=== PATIENT | male | born 1995 | race Caucasian/White ===

== ENCOUNTER 2016-06-15 08:41 | Emergency (ER) | payer MEDICAID, OTHER ==
[~2016-06-15] VITALS: Ht 177.8 cm; Wt 100.0 kg
[2016-06-15] MEDS ORDERED: LIDOCAINE HCL BUFFERED 1% 20 ML VIAL INJ ONE (10:15)
[2016-06-15] MEDS ORDERED: POVIDONE-IODINE 10% 15 ML SOLUTION UD TP ONE (10:15)
[2016-06-15 11:20] VITALS: BP 136/72
== END 2016-06-15 12:10 | disposition home or self-care (01) ==
LOC: EMS 08:43
DX: S01.511A Laceration without foreign body of lip, initial encounter (principal); J45.909 Unspecified asthma, uncomplicated; Y04.0XXA Assault by unarmed brawl or fight, initial encounter; Y93.89 Activity, other specified; Y92.89 Other specified places as the place of occurrence of the external cause; Y99.8 Other external cause status
CPT/HCPCS: 12051; 99284; J3490

== ENCOUNTER 2016-06-20 08:45 | Emergency (ER) | payer MEDICAID ==
[~2016-06-20] VITALS: Ht 180.3 cm; Wt 100.0 kg
[2016-06-20 08:52] VITALS: BP 125/65
== END 2016-06-20 09:12 | disposition home or self-care (01) ==
LOC: EMS 08:46
DX: Z48.02 Encounter for removal of sutures (principal); J45.909 Unspecified asthma, uncomplicated
CPT/HCPCS: 99281

== ENCOUNTER 2018-01-25 11:27 | Emergency (ER) | payer SELFPAY ==
[~2018-01-25] VITALS: Ht 172.7 cm; Wt 90.9 kg
[2018-01-25 11:39] VITALS: BP 128/84
[2018-01-25] MEDS ORDERED: IBUPROFEN 600 MG TABLET PO ONE (12:30)
== END 2018-01-25 12:34 | disposition home or self-care (01) ==
LOC: EMS 11:39
DX: J40 Bronchitis, not specified as acute or chronic (principal); F12.90 Cannabis use, unspecified, uncomplicated; F17.210 Nicotine dependence, cigarettes, uncomplicated
CPT/HCPCS: 99406

== ENCOUNTER 2018-01-27 09:17 | Emergency (ER) | payer SELFPAY ==
[~2018-01-27] VITALS: Ht 170.2 cm; Wt 86.4 kg
[2018-01-27 09:26] VITALS: BP 133/56
[2018-01-27 09:53] LABS: BASOPHILS % (AUTO) 0.8 % (0.0-2.0); EOSINOPHILS % (AUTO) 7.4 % (1.0-6.0); HEMATOCRIT 50.4 % (41-53); HEMOGLOBIN 17.4 g/dL (13.5-17.5); LYMPHOCYTES # (AUTO) 2.3 K/uL (1.0-4.8); LYMPHOCYTES % (AUTO) 21.2 % (22.0-44.0); MEAN CORPUSCULAR HEMOGLOBIN 31.9 pg (26.0-34.0); MEAN CORPUSCULAR HGB CONC 34.5 G/dL (31.0-37.0); MEAN CORPUSCULAR VOLUME 93 fL (80-100); MONOCYTES # (AUTO) 0.9 K/uL (0.1-1.0); MONOCYTES % (AUTO) 8.2 % (2.0-9.0); NEUTROPHILS # (AUTO) 6.7 K/uL (1.8-7.7); NEUTROPHILS % (AUTO) 62.4 % (40.0-70.0); PLATELET COUNT (AUTO) 349 K/uL (150-450); RED BLOOD CELL COUNT(AUTO) 5.45 MIL/uL (4.50-5.90)
[2018-01-27 09:59] LABS: ANION GAP 8 mmol/L (8-16); CALCIUM, TOTAL 9.3 mg/dL (8.8-10.5); CARBON DIOXIDE 32 mmol/L (22-29); CHLORIDE 100 mmol/L (98-107); CREATININE 0.68 mg/dL (0.60-1.30); GLOMERULAR FILTR. RATE CALC > 60 mL/min (>60); GLUCOSE,RANDOM 93 mg/dL (70-110); POTASSIUM 4.4 mmol/L (3.5-5.1); SODIUM SERUM 140 mmol/L (136-145); UREA NITROGEN, BLOOD 12 mg/dL (7-18)
[2018-01-27 10:05] LABS: ALANINE AMINOTRANSFERASE 40 U/L (12-78); ALBUMIN 4.3 g/dL (3.4-5.0); ALKALINE PHOSPHATASE 77 U/L (46-116); ASPARTATE AMINOTRANSFERASE 18 U/L (15-37); BILIRUBIN,TOTAL 0.6 mg/dL (0.1-1.0)
[2018-01-27] MEDS ORDERED: LORazepam 2 MG TABLET PO ONE (10:30)
== END 2018-01-27 11:03 | disposition home or self-care (01) ==
LOC: EMS 09:20
DX: F41.9 Anxiety disorder, unspecified (principal); J45.909 Unspecified asthma, uncomplicated; F12.90 Cannabis use, unspecified, uncomplicated; F17.210 Nicotine dependence, cigarettes, uncomplicated
CPT/HCPCS: 36415; 80053; 85025; 99284; G0480

== ENCOUNTER 2019-12-03 20:40 | Emergency (ER) | payer MEDICAID ==
[~2019-12-03] VITALS: Ht 180.3 cm; Wt 90.0 kg
[2019-12-03 22:08] VITALS: BP 129/82
== END 2019-12-03 22:30 | disposition home or self-care (01) ==
LOC: EMS 20:41
DX: F19.10 Other psychoactive substance abuse, uncomplicated (principal); F12.90 Cannabis use, unspecified, uncomplicated; F15.90 Other stimulant use, unspecified, uncomplicated; F17.210 Nicotine dependence, cigarettes, uncomplicated
CPT/HCPCS: Z7502

== ENCOUNTER 2020-12-03 20:41 | Inpatient (IN) | payer MEDICAID ==
[~2020-12-03] VITALS: Ht 177.8 cm; Wt 80.7 kg
[2020-12-03 21:21] LABS: BASOPHILS % (AUTO) 0.8 % (0.0-2.0); EOSINOPHILS % (AUTO) 4.3 % (1.0-6.0); HEMATOCRIT 39.6 % (41-53); HEMOGLOBIN 13.7 g/dL (13.5-17.5); LYMPHOCYTES # (AUTO) 3.1 K/uL (1.0-4.8); LYMPHOCYTES % (AUTO) 34.7 % (22.0-44.0); MEAN CORPUSCULAR HEMOGLOBIN 30.7 pg (26.0-34.0); MEAN CORPUSCULAR HGB CONC 34.5 G/dL (31.0-37.0); MEAN CORPUSCULAR VOLUME 89 fL (80-100); MONOCYTES # (AUTO) 1.3 K/uL (0.1-1.0); MONOCYTES % (AUTO) 14.9 % (2.0-9.0); NEUTROPHILS # (AUTO) 4.1 K/uL (1.8-7.7); NEUTROPHILS % (AUTO) 45.3 % (40.0-70.0); PLATELET COUNT (AUTO) 292 K/uL (150-450); RED BLOOD CELL COUNT(AUTO) 4.45 MIL/uL (4.50-5.90); RED CELL DISTRIBUTION WIDTH 12.8 % (11.5-14.5)
[2020-12-03 21:30] LABS: ANION GAP 8 mmol/L (8-16); CALCIUM, TOTAL 8.6 mg/dL (8.8-10.5); CARBON DIOXIDE 29 mmol/L (22-29); CHLORIDE 107 mmol/L (98-107); CREATININE 0.67 mg/dL (0.60-1.30); GLOMERULAR FILTR. RATE CALC > 60 mL/min (>60); GLUCOSE,RANDOM 93 mg/dL (70-110); POTASSIUM 3.5 mmol/L (3.5-5.1); SODIUM SERUM 144 mmol/L (136-145); UREA NITROGEN, BLOOD 23 mg/dL (7-18)
[2020-12-03 21:36] LABS: ALANINE AMINOTRANSFERASE 28 U/L (12-78); ALKALINE PHOSPHATASE 87 U/L (46-116); ASPARTATE AMINOTRANSFERASE 17 U/L (15-37); BILIRUBIN,TOTAL 0.4 mg/dL (0.1-1.0); TOTAL PROTEIN, SERUM 7.5 g/dL (6.4-8.2)
[2020-12-03] MEDS ORDERED: HALOPERIDOL 5 MG TABLET PO PRN (22:45)
[2020-12-03] MEDS ORDERED: LORazepam 2 MG TABLET PO PRN (22:45)
[2020-12-04 02:16] LABS: COVID AG,FIA SOURCE NASOPHARYNGEAL
[2020-12-04 02:45] LABS: CHOL/HDL RATIO 2.1 (4.2-7.3); CHOLESTEROL 103 mg/dL (131-200); HDL CHOLESTEROL 49 mg/dL (40-60); LDL CHOL (CALC.) 43 mg/dL (0-130); TRIGLYCERIDES 57 mg/dL (15-150)
[2020-12-04 04:02] VITALS: BP 133/84
[2020-12-04] MEDS ORDERED: INFLUENZA VIRUS VACCINE QVS 2021-22 (6MO+)/PF 60 MCG/0.5 ML SYRINGE IM. ONE (05:30)
[2020-12-04] MEDS ORDERED: PETROLATUM,WHITE 28 GM JELLY TP PRN (09:45)
[2020-12-04] MEDS ORDERED: ONDANSETRON HCL 4 MG TABLET PO PRN (09:45)
[2020-12-04] MEDS ORDERED: DOCUSATE SODIUM 100 MG CAPSULE PO PRN (09:45)
[2020-12-04] MEDS ORDERED: MAG HYDROX/AL HYDROX/SIMETH ES 30 ML SUSPENSION UDCUP PO PRN (09:45)
[2020-12-04] MEDS ORDERED: IBUPROFEN 400 MG TABLET PO PRN (09:45)
[2020-12-04] MEDS ORDERED: LOPERAMIDE HCL 2 MG CAPSULE PO PRN (09:45)
[2020-12-04] MEDS ORDERED: GuaiFENesin/D-METHORPHAN [SUGAR-FREE] 200-20MG/10 ML SYRUP UDCUP PO PRN (09:45)
[2020-12-04] MEDS ORDERED: ACETAMINOPHEN 325 MG TABLET PO PRN (09:45)
[2020-12-04] MEDS ORDERED: MAGNESIUM HYDROXIDE SUSPENSION 30 ML UDCUP PO PRN (09:45)
[2020-12-04] MEDS ORDERED: CloNIDine HCL 0.1 MG TABLET PO PRN (09:45)
[2020-12-04] MEDS ORDERED: ALBUTEROL SULFATE HFA 90 MCG/PUFF 8 GM INHALER IH PRN (09:45)
[2020-12-04] MEDS ORDERED: NICOTINE 14 MG/24 HOUR PATCH TD PRN (09:45)
[2020-12-04] MEDS: QUEtiapine FUMARATE 25 MG TABLET PO SCH (13:02)
[2020-12-04] MEDS ORDERED: LORazepam 2 MG/ML VIAL ONE (19:07)
[2020-12-04] MEDS ORDERED: HALOPERIDOL LACTATE 5 MG/ML VIAL ONE ×2 (19:07)
[2020-12-04] MEDS ORDERED: DiphenhydrAMINE HCL 50 MG/ML VIAL ONE (19:07)
[2020-12-04] MEDS ORDERED: LORazepam 2 MG/ML VIAL IM ONE (19:15)
[2020-12-04] MEDS ORDERED: HALOPERIDOL LACTATE 5 MG/ML VIAL IM ONE (19:15)
[2020-12-04] MEDS ORDERED: DiphenhydrAMINE HCL 50 MG/ML VIAL IM ONE (19:15)
[2020-12-04] MEDS: QUEtiapine FUMARATE 100 MG TABLET PO SCH (21:00)
[2020-12-05] MEDS ORDERED: DOCUSATE SODIUM 100 MG CAPSULE PO PRN (06:30)
[2020-12-05] MEDS ORDERED: ACETAMINOPHEN 325 MG TABLET PO PRN (06:30)
[2020-12-05] MEDS ORDERED: NICOTINE 14 MG/24 HOUR PATCH TD PRN (06:30)
[2020-12-05] MEDS ORDERED: GuaiFENesin/D-METHORPHAN [SUGAR-FREE] 200-20MG/10 ML SYRUP UDCUP PO PRN (06:30)
[2020-12-05] MEDS ORDERED: IBUPROFEN 400 MG TABLET PO PRN (06:30)
[2020-12-05] MEDS ORDERED: CloNIDine HCL 0.1 MG TABLET PO PRN (06:30)
[2020-12-05] MEDS ORDERED: MAG HYDROX/AL HYDROX/SIMETH ES 30 ML SUSPENSION UDCUP PO PRN (06:30)
[2020-12-05] MEDS ORDERED: PETROLATUM,WHITE 28 GM JELLY TP PRN (06:30)
[2020-12-05] MEDS ORDERED: LOPERAMIDE HCL 2 MG CAPSULE PO PRN (06:30)
[2020-12-05] MEDS ORDERED: ONDANSETRON HCL 4 MG TABLET PO PRN (06:30)
[2020-12-05] MEDS ORDERED: ALBUTEROL SULFATE HFA 90 MCG/PUFF 8 GM INHALER IH PRN (06:30)
[2020-12-05] MEDS ORDERED: MAGNESIUM HYDROXIDE SUSPENSION 30 ML UDCUP PO PRN (06:30)
[2020-12-05 08:05] VITALS: BP 126/91
[2020-12-05] MEDS: THIAMINE 100 MG TABLET PO SCH (09:02)
[2020-12-05] MEDS: MULTIVITAMINS WITH MINERALS, THERAPEUTIC TABLET PO SCH (09:02)
[2020-12-05] MEDS: QUEtiapine FUMARATE 25 MG TABLET PO SCH (09:02)
[2020-12-05] MEDS: FOLIC ACID 1 MG TABLET PO SCH (09:02)
[2020-12-05 16:26] VITALS: BP 128/79
[2020-12-05] MEDS: QUEtiapine FUMARATE 100 MG TABLET PO SCH (21:46)
[2020-12-06] MEDS: THIAMINE 100 MG TABLET PO SCH (08:37)
[2020-12-06] MEDS: MULTIVITAMINS WITH MINERALS, THERAPEUTIC TABLET PO SCH (08:37)
[2020-12-06] MEDS: QUEtiapine FUMARATE 25 MG TABLET PO SCH (08:37)
[2020-12-06] MEDS: FOLIC ACID 1 MG TABLET PO SCH (08:37)
[2020-12-06 08:53] VITALS: BP 108/64
[2020-12-06 17:06] VITALS: BP 112/77
[2020-12-06] MEDS: QUEtiapine FUMARATE 100 MG TABLET PO SCH (21:04)
[2020-12-07 09:20] VITALS: BP 128/71
[2020-12-07] MEDS: THIAMINE 100 MG TABLET PO SCH (09:24)
[2020-12-07] MEDS: MULTIVITAMINS WITH MINERALS, THERAPEUTIC TABLET PO SCH (09:25)
[2020-12-07] MEDS: QUEtiapine FUMARATE 25 MG TABLET PO SCH (09:25)
[2020-12-07] MEDS: FOLIC ACID 1 MG TABLET PO SCH (09:25)
[2020-12-07 16:53] VITALS: BP 121/69
[2020-12-07] MEDS: QUEtiapine FUMARATE 100 MG TABLET PO SCH (20:20)
[2020-12-08] MEDS: QUEtiapine FUMARATE 25 MG TABLET PO SCH (08:55)
[2020-12-08] MEDS: THIAMINE 100 MG TABLET PO SCH (08:55)
[2020-12-08] MEDS: MULTIVITAMINS WITH MINERALS, THERAPEUTIC TABLET PO SCH (08:55)
[2020-12-08] MEDS: FOLIC ACID 1 MG TABLET PO SCH (08:55)
[2020-12-08 09:10] VITALS: BP 125/75
[2020-12-08 17:37] VITALS: BP 110/71
[2020-12-08] MEDS: QUEtiapine FUMARATE 100 MG TABLET PO SCH (20:16)
[2020-12-09] MEDS: THIAMINE 100 MG TABLET PO SCH (08:06)
[2020-12-09] MEDS: QUEtiapine FUMARATE 25 MG TABLET PO SCH (08:06)
[2020-12-09] MEDS: FOLIC ACID 1 MG TABLET PO SCH (08:06)
[2020-12-09] MEDS: MULTIVITAMINS WITH MINERALS, THERAPEUTIC TABLET PO SCH (08:06)
[2020-12-09 08:45] VITALS: BP 109/71
[2020-12-09 16:00] VITALS: BP 113/69
[2020-12-09] MEDS: QUEtiapine FUMARATE 100 MG TABLET PO SCH (20:07)
[2020-12-10 00:40] VITALS: BP 115/61
[2020-12-10] MEDS: ZOLPIDEM TARTRATE 10 MG TABLET PO PRN (00:44)
[2020-12-10] MEDS: THIAMINE 100 MG TABLET PO SCH (08:17)
[2020-12-10] MEDS: FOLIC ACID 1 MG TABLET PO SCH (08:17)
[2020-12-10] MEDS: MULTIVITAMINS WITH MINERALS, THERAPEUTIC TABLET PO SCH (08:17)
[2020-12-10] MEDS: QUEtiapine FUMARATE 25 MG TABLET PO SCH (08:18)
[2020-12-10 09:14] VITALS: BP 134/54
[2020-12-10 15:01] LABS: COVID AG,FIA SOURCE NASAL SWAB
[2020-12-10 16:00] VITALS: BP 117/73
[2020-12-10] MEDS: QUEtiapine FUMARATE 100 MG TABLET PO SCH (20:54)
[2020-12-11 08:15] VITALS: BP 112/74
[2020-12-11] MEDS: THIAMINE 100 MG TABLET PO SCH (08:25)
[2020-12-11] MEDS: FOLIC ACID 1 MG TABLET PO SCH (08:25)
[2020-12-11] MEDS: QUEtiapine FUMARATE 25 MG TABLET PO SCH (08:25)
[2020-12-11] MEDS: MULTIVITAMINS WITH MINERALS, THERAPEUTIC TABLET PO SCH (08:25)
[2020-12-11 16:00] VITALS: BP 107/65
[2020-12-11] MEDS: QUEtiapine FUMARATE 100 MG TABLET PO SCH (20:10)
[2020-12-12 00:30] VITALS: BP 132/94
[2020-12-12] MEDS: ZOLPIDEM TARTRATE 10 MG TABLET PO PRN (00:36)
[2020-12-12 09:27] VITALS: BP 107/61
[2020-12-12] MEDS: THIAMINE 100 MG TABLET PO SCH (09:27)
[2020-12-12] MEDS: FOLIC ACID 1 MG TABLET PO SCH (09:27)
[2020-12-12] MEDS: MULTIVITAMINS WITH MINERALS, THERAPEUTIC TABLET PO SCH (09:27)
[2020-12-12] MEDS: QUEtiapine FUMARATE 25 MG TABLET PO SCH (09:27)
[2020-12-12 17:23] VITALS: BP 115/67
[2020-12-12] MEDS: QUEtiapine FUMARATE 100 MG TABLET PO SCH (20:05)
[2020-12-13 08:30] VITALS: BP 120/75
[2020-12-13] MEDS: THIAMINE 100 MG TABLET PO SCH (08:42)
[2020-12-13] MEDS: QUEtiapine FUMARATE 25 MG TABLET PO SCH (08:42)
[2020-12-13] MEDS: MULTIVITAMINS WITH MINERALS, THERAPEUTIC TABLET PO SCH (08:42)
[2020-12-13] MEDS: FOLIC ACID 1 MG TABLET PO SCH (08:42)
[2020-12-13 09:52] VITALS: BP 120/75
[2020-12-13] MEDS ORDERED: QUET25TA PO (13:02)
[2020-12-13] MEDS ORDERED: MULT-1239 PO (13:02)
[2020-12-13] MEDS ORDERED: QUET100T PO (13:02)
[2020-12-13] MEDS ORDERED: THIA100T80 PO (13:02)
[2020-12-13] MEDS ORDERED: FOLI-130 PO (13:02)
== END 2020-12-13 15:35 | disposition home or self-care (01) | DRG 750 ==
LOC: EMS 20:44 → 3EI 12-04 02:56
PROVIDERS: ADMIT Psychiatry & Neurology Child & Adolescent Psychiatry; ATTEND Psychiatry & Neurology Child & Adolescent Psychiatry
DX: F25.1 Schizoaffective disorder, depressive type (principal); F10.129 Alcohol abuse with intoxication, unspecified; F15.10 Other stimulant abuse, uncomplicated; F17.200 Nicotine dependence, unspecified, uncomplicated; J45.909 Unspecified asthma, uncomplicated; Z20.822 Contact with and (suspected) exposure to COVID-19; Z71.6 Tobacco abuse counseling; Z79.899 Other long term (current) drug therapy
CPT/HCPCS: 80053; 80061; 85025; 99285; G0480; J1200; J1630; J2060; Q0162

== ENCOUNTER 2020-12-19 18:14 | Emergency (ER) | payer MEDICAID ==
[~2020-12-19] VITALS: Ht 170.2 cm; Wt 72.7 kg
[~2020-12-19 18:14] MED LIST: FOLI-130 PO; MULT-1239 PO; QUET100T PO; QUET25TA PO; THIA100T80 PO
[2020-12-19 19:48] LABS: BASOPHILS % (AUTO) 1.1 % (0.0-2.0); EOSINOPHILS % (AUTO) 8.9 % (1.0-6.0); HEMATOCRIT 35.8 % (41-53); HEMOGLOBIN 12.3 g/dL (13.5-17.5); LYMPHOCYTES # (AUTO) 2.3 K/uL (1.0-4.8); LYMPHOCYTES % (AUTO) 27.7 % (22.0-44.0); MEAN CORPUSCULAR HEMOGLOBIN 31.2 pg (26.0-34.0); MEAN CORPUSCULAR HGB CONC 34.3 G/dL (31.0-37.0); MEAN CORPUSCULAR VOLUME 91 fL (80-100); MONOCYTES % (AUTO) 12.1 % (2.0-9.0); NEUTROPHILS # (AUTO) 4.2 K/uL (1.8-7.7); NEUTROPHILS % (AUTO) 50.2 % (40.0-70.0); PLATELET COUNT (AUTO) 444 K/uL (150-450); RED BLOOD CELL COUNT(AUTO) 3.94 MIL/uL (4.50-5.90); RED CELL DISTRIBUTION WIDTH 14.2 % (11.5-14.5)
[2020-12-19 20:02] LABS: ANION GAP 8 mmol/L (8-16); CALCIUM, TOTAL 8.8 mg/dL (8.8-10.5); CARBON DIOXIDE 31 mmol/L (22-29); CHLORIDE 105 mmol/L (98-107); CREATININE 0.71 mg/dL (0.60-1.30); GLOMERULAR FILTR. RATE CALC > 60 mL/min (>60); GLUCOSE,RANDOM 91 mg/dL (70-110); POTASSIUM 3.5 mmol/L (3.5-5.1); SODIUM SERUM 144 mmol/L (136-145); UREA NITROGEN, BLOOD 12 mg/dL (7-18)
[2020-12-19 20:08] LABS: ALANINE AMINOTRANSFERASE 18 U/L (12-78); ALBUMIN 3.3 g/dL (3.4-5.0); ALKALINE PHOSPHATASE 79 U/L (46-116); ASPARTATE AMINOTRANSFERASE 12 U/L (15-37); BILIRUBIN,TOTAL 0.5 mg/dL (0.1-1.0); TOTAL PROTEIN, SERUM 6.6 g/dL (6.4-8.2)
[2020-12-19 20:20] VITALS: BP 110/60
[2020-12-19] MEDS: HALOPERIDOL 5 MG TABLET PO ONE (20:38)
== END 2020-12-19 21:13 | disposition home or self-care (01) ==
LOC: EMS 18:19
DX: F20.9 Schizophrenia, unspecified (principal); F32.9 Major depressive disorder, single episode, unspecified; J45.909 Unspecified asthma, uncomplicated; F17.210 Nicotine dependence, cigarettes, uncomplicated; F12.90 Cannabis use, unspecified, uncomplicated; F19.90 Other psychoactive substance use, unspecified, uncomplicated
CPT/HCPCS: 36415; 80053; 85025; 99284; G0480

== ENCOUNTER 2021-04-19 11:23 | Emergency (ER) | payer MEDICAID ==
[~2021-04-19] VITALS: Ht 182.9 cm; Wt 93.0 kg
[2021-04-19 11:25] VITALS: BP 129/67
== END 2021-04-19 14:54 | disposition left against medical advice (07) ==
LOC: EMS 11:25
DX: R45.851 Suicidal ideations (principal); Z53.21 Procedure and treatment not carried out due to patient leaving prior to being seen by health care provider